=== PATIENT | male | born 1935 | race Caucasian/White ===

== ENCOUNTER → 2024-11-19 | Outpatient (CLI) | payer MEDICARE, BC ==
--- NOTE | 2024-11-19 12:10 | XR ---
EXAMINATION TYPE: XR chest 2V DATE OF EXAM: 11/19/2024 11:20 AM COMPARISON: 03/24/2015 CLINICAL INDICATION: Male, 89 years old with history of I50.31 ACUTE DIASTOLIC (CONGESTIVE) HEART MAYLIN ESTRADA, , TECHNIQUE: Frontal and lateral views FINDINGS: Left anterior chest wall pacemaker generator with right atrial and ventricular leads. Heart borderlin e in size. There is hyperinflation. Scattered atherosclerotic calcifications throughout the thoracic aorta. Mild interstitial prominence. No consolidation or pleural effusion. IMPRESSION: COPD and possible mild pulmonary vascular congestion. No pulmonary edema. [facility], Workstation: [facility], 11/19/2024 12:08 PM
== END | disposition home or self-care (01) ==
LOC: RADXRMAIN 10:58
PROVIDERS: ATTEND Internal Medicine
DX: I50.31 Acute diastolic (congestive) heart failure (principal); J44.9 Chronic obstructive pulmonary disease, unspecified
CPT/HCPCS: 71046

== ENCOUNTER → 2024-12-12 | Outpatient (CLI) | payer MEDICARE, BC ==
[2024-12-12 16:22] LABS: African American GFR (CKD) 71 (>60 ml/min/1.73 sqM); Blood Urea Nitrogen 29 mg/dL (9-20); Non-African American GFR(CKD) 62 (>60 ml/min/1.73 sqM)
--- NOTE | 2024-12-12 20:04 | CT ---
EXAMINATION TYPE: CT angio chest CT DLP: 444 mGycm, Automated exposure control for dose reduction was used. DATE OF EXAM: 12/12/2024 5:02 PM COMPARISON: Chest radiograph 11/19/2024 CLINICAL INDICATION:Male, 89 years old with history of R79.89 OTHER SPECIFIED ABNORMAL FINDINGS OF BL OOD; Elevated d-dimer. TECHNIQUE/CONTRAST: CTA scan of the thorax is performed with IV Contrast, patient injected with 100ml mL of Isovue 370, p ulmonary embolism protocol. MIP images are created and reviewed. FINDINGS: Pulmonary Artery: There is no evidence for a filling defect within the pulmonary vasculature to sugge st acute pulmonary embolism. The right main pulmonary artery measures up to 3.3 cm. The left main pu lmonary artery measures up to 3.0 cm. Lungs/Pleura: The lung apices are not included in the [id number]. No evidence of focal consolidati on, pleural effusion or pneumothorax within the visualized lungs. Linear scarring and/or atelectasis within the right lower lobe. 5.8 mm pulmonary nodule along the right major fissure. Additional 3.2 mm pulmonary nodule along the right minor fissure. Airway: Large airways are patent. Heart: Heart is within normal limits for size.. Left anterior chest wall cardiac pacemaking device wi th leads terminating in the right atrium and right ventricle. Small aortic valvular calcifications. Vasculature: Fusiform ascending thoracic aortic aneurysm measured 4.2 cm. Atherosclerotic calcificati on of the aorta and its branches. Mediastinum: No evidence of adenopathy. Musculoskeletal: No acute osseous abnormalities. Mild multilevel degenerative disc disease. Soft Tissues: Unremarkable. Lower neck: No significant findings. Upper Abdomen: There is surface nodularity to the liver with widened fissures. Small hiatal hernia.. IMPRESSION: 1. No evidence of pulmonary embolism or acute thoracic process. 2. Couple of pulmonary nodules along the right minor fissure measuring up to 5.8 millimeters. In a lo w-risk patient, no follow-up is recommended. In a high-risk patient consider optional CT chest in 12 months. 3. Ascending thoracic aortic aneurysm measuring up to 4.2 cm. Dilated pulmonary arteries which can be seen with pulmonary arterial hypertension. 4. 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 Correlate with liver function tests. [facility], , 12/12/2024 8:02 PM
== END | disposition home or self-care (01) ==
LOC: RADCTMAIN 15:28
PROVIDERS: ATTEND Internal Medicine
DX: R91.8 Other nonspecific abnormal finding of lung field (principal); R79.89 Other specified abnormal findings of blood chemistry; I71.21 Aneurysm of the ascending aorta, without rupture; K74.60 Unspecified cirrhosis of liver; K44.9 Diaphragmatic hernia without obstruction or gangrene
CPT/HCPCS: 82565; 84520; 71275; 36415; Q9967